=== PATIENT | male | born 2000 | race Caucasian/White ===

== ENCOUNTER 2018-08-03 12:00 | Outpatient (RCR) | payer BC, SELFPAY ==
--- NOTE | 2018-08-03 13:52 | HP.OTEVAL ---
Patient's Visit Information KWAN HERNÁNDEZ is a 18 year old M, referred to Occupational Therapy by JEREMÍAS SAUCEDO, with a diagnosis of autism spectrum disorder. Date of Evaluation: 07/22/18 Occupational Therapist: Maryjo Antonio - Subjective Subjective: Pt seen for initial occupational therapy evaluation sensory concerns, socialization concerns with peers, anxiety that increases with large crowds, noises, changes in routine, has been more difficult since coming back from winter break. Occassionally has trouble sleeping, dreams are very vivid, loud noises, taste, touch, smell are stronger, feels emotions in his head. Pt uses the following tools, deep breathing, nutritional supplements, rescue remide spray, and ear plugs. Pt spends a lot of time in room, likes to listen to pod cast for fun, draw with graphite pencils, watch epidsods of tv, and read. - Objective Objective/Observation: Pt very polite and quiet. - Goals Goal:: Pt will be educated on tools/strategies to assist with emotional control for executive functioning skills with good understanding and demo 100%x. Goal:: Pt will be educated on tools/strategies to assist with flexibility with executive functioning with good understanding and demo 100%x. Goal:: Pt will be educated on executive functioning, stress tolerance tools/strategies to assist pt within the college setting with good understanding and demo 100%x. 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 Pt states has a lot of difficulty with going to cafeteria because of the noises and sitting through his non-fiction writing class, very stressful small room lots of noise, small group activities. He states he stopped eating in cafeteria gets food to go in container because so loud and so many people. Not in any clubs or groups. Resides in single room no roomate within the dorms. States does ok with the noise of dorms. Can walk to [employer] or college store for items if needed. Pt completed executive skills questionnaire showing 3 strongest skills; response inhibition, working memory, metacognition. Weakest Skills: stress tolerance, flexibility, emotional control. Education with pt regarding weakest executive function skills and OT POC for goals focused on tools/strategies to assist with weakest executive functioning skills. Pt demo understanding. Pt stated does better talking with his professors than peers. Educated pt on social groups, pt stated not interested in completing social skills group tasks with peers his age. Pt would benefit from direct occupational therapy services to educate on tools/strateges to assist with 3 weakest executive functioning skills to increase pt's executive functioning skills. Rehabilitation Potential: Good - Anticipated Interventions Anticipated Interventions: Home Program Other Interventions: education on tools/strategies for executive functioning skills - Visit Plan Frequency: 1x/Week Duration: 6 Weeks General Plan: increase executive functioning skills with the use of tools/strategies to assist with his weakest executive funcitoning skills to increase pt's quality of life and decrease his stress and anxiety levels. TEXT: Thank you for the opportunity to evaluate your patient. For Medicare and Medicare HMO plans, please review the plan of care and approve it. It will need to be FAXED BACK to us at [phone] for Medicare purposes. Please let me know if there are questions or concerns regarding this plan of care. Physician Signature: Date:
--- NOTE | 2018-08-05 11:49 | HP.OTDCSUM ---
HP - OT D/C Summary It has been my pleasure to treat KWAN HERNÁNDEZ under orders from JEREMÍAS SAUCEDO, for the diagnosis of autism spectrum disorder for a total of 3 visit(s). Please see the following information for a summary of their discharge status. - Objective Objective/Function: educate on tools/strategies to assist with 3 weakest executive functioning skills - Goals Other: increase independence with tools/strategies to assist with executive functioning skills, educate on tools/strategies to assist pt with stress tolerance, flexibility and emotional control Goal:: Pt will be educated on tools/strategies to assist with emotional control for executive functioning skills with good understanding and demo 100%x. Goal:: Pt will be educated on tools/strategies to assist with flexibility with executive functioning with good understanding and demo 100%x. Goal:: Pt will be educated on executive functioning, stress tolerance tools/strategies to assist pt within the college setting with good understanding and demo 100%x. - Plan Plan: D/C OT services at this time. - D/C Information Discharge Comments: Pt goals focused on tools/strategies to assist with executive functioning skills. Pt completed questionairre at evaluation for executive functioning skills and demo weakness in stress tolerance, flexibility and emotional control. Pt provided with tools/strategies to assist with executive functioning skills. During OT sessions with education on executive functioning skills, pt expressed concerns with sexuality, Provided pt with letter this date stating OT POC for specific executive functioning goals and use of tools/strategies to assist with those 3 weakest executive functioning goals and pt's other concerns regarding sexuality, grieving over girlfriend are not OT scope of practice for OT so pt had a clear understanding of purpose of OT at this time. Education on tools/strategies to assist with executive functioning skills, pt stated he would rather see a counciler to discuss his feelings, sexuality, anxiety and grief vs continuing with OT to focus on executive functioning skills with use of tools/strategies. When educated on social skills training, pt again declined want to complete any social skills training with peers his age. Provided pt with 4 different counciling centers available to assist him as needed in the area. Pt agreed to d/c OT services this date. Called different counciling facilities for pt to provide pt with further information for counciling needs. D/C OT services at this time. If there are questions or concerns regarding this patient's occupational therapy, please fell free to call me at [phone]. Thank you for the referral of this patient. Sincerely, Maryjo Antonio
== END 2018-08-03 19:00 | disposition home or self-care (01) ==
LOC: OT 12:00
DX: F84.0 Autistic disorder (principal)
CPT/HCPCS: 97165; 97166; 97530

== ENCOUNTER → 2020-10-22 06:36 | Outpatient (CLI) | payer BC, SELFPAY | PROVIDERS: Referring Provider Family Medicine; Visit Provider Family Medicine | DX: Z23 Encounter for immunization (principal) | CPT/HCPCS: 0031A; 91303 ==